=== PATIENT | male | born 1965 | race Caucasian/White ===

== ENCOUNTER 2022-10-22 12:48 | Outpatient (REF) | payer OTHER, SELFPAY ==
[2022-10-22 13:56] LABS: MANUAL DIFF FLAG NO
[2022-10-22 14:30] LABS: Basophils Absolute Auto 0.1 X10*3/uL (0.0-0.2); Basophils Percent Auto 0.7 % (0-2); Eosinophils Absolute Auto 0.2 X10*3/uL (0.0-0.4); Hematocrit 40.2 % (42.0-52.0); Hemoglobin 14.4 g/dl (14.0-18.0); Imm Gran Abs Auto 0.03 X10*3/uL (0.00-0.03); Imm Gran Pct Auto 0.4 % (0.0-0.4); Lymphocytes Absolute Auto 1.9 X10*3/uL (1.2-4.9); Lymphocytes Percent Auto 25.9 % (20-40); Mean Corpuscular HGB Conc 35.8 g/dl (31.0-36.0); Mean Corpuscular Hemoglobin 31.2 pg (27.0-33.0); Mean Platelet Volume 10.4 fL (9.4-12.4); Monocytes Absolute Auto 0.4 X10*3/uL (0.1-1.2); Monocytes Percent Auto 5.4 % (2-11); Neutrophils Absolute Auto 4.8 x10*3/uL (2.0-8.3); Neutrophils Percent Auto 64.6 % (45-73); Platelet Count 183 X10*3/uL (160-400); Red Blood Count 4.62 X10*6/uL (4.60-5.80); Red Cell Distribution Width 12.9 % (11.0-16.0); White Blood Count 7.4 X10*3/uL (4.8-10.8)
[2022-10-22 15:22] LABS: Alanine Aminotransferase 45 U/L (0-40); Albumin Level 4.4 g/dL (3.5-5.0); Alkaline Phosphatase 89 U/L (39-117); Aspartate Amino Transferase 23 U/L (5-37); Blood Urea Nitrogen 16 mg/dL (9-16); C Reactive Protein < 0.10 mg/dL (< or = 0.50); Estimated Glomerular Filt Rate > 60; Glucose Random 177 mg/dL (60-115); Total Protein 6.7 g/dL (6.5-8.0)
[2022-10-22 15:51] LABS: Anion Gap 9 (12-20); Carbon Dioxide 27 mmol/L (22-29); Chloride 109 mmol/L (96-108); Potassium 3.9 mmol/L (3.3-5.1); Sodium 141 mmol/L (135-145)
[2022-10-24 09:10] LABS: HBc Num1 0.07 S/CO (0.00-0.79); HBsAGNum1 0.31 S/CO (0.00-0.99); Hepatitis A Antibody IgM 0.14 Index (0-0.79); Hepatitis B Core Antibody Nonreactive (Nonreactive); Hepatitis B Surface Antigen Negative (Negative); ~HepC Num1 0.06 S/CO (0.00-0.79); ~Hepatitis A Antibody IgM Nonreactive (Nonreactive); ~Hepatitis C Antibody Nonreactive (Nonreactive)
[2022-10-24 10:42] LABS: HBS Num1 4.93 mIU/mL (0-7.99); ~Hepatitis B Surface Antibody NONREACTIVE (Nonreactive)
[2022-10-24 15:44] LABS: Cyclic Citrullinated Peptide <16 UNITS
[2022-10-24 21:38] LABS: TS Negative Control Passed; TS Panel A 0; TS Panel B 0; TS Positive Control Passed; TSpotTB Negative (Negative)
[2022-10-24 21:48] LABS: Prot Elec - Albumin 4.5 g/dL (3.8-4.8); Prot Elec - Alpha1 0.2 g/dL (0.2-0.3); Prot Elec - Alpha2 0.5 g/dL (0.5-0.9); Prot Elec - Beta 1 0.4 g/dL (0.4-0.6); Prot Elec - Beta 2 0.4 g/dL (0.2-0.5); Prot Elec - Gamma 0.8 g/dL (0.8-1.7); Prot Elec - Total Protein 6.8 g/dL (6.1-8.1)
[2022-10-25 11:33] LABS: IgA 243 mg/dL (47-310); IgG 966 mg/dL (600-1640); IgM 41 mg/dL (50-300)
== END 2022-10-22 12:49 | disposition home or self-care (01) ==
LOC: HO.LAB 12:48
PROVIDERS: PCP Internal Medicine; Visit Provider Student in an Organized Health Care Education/Training Program
DX: M06.9 Rheumatoid arthritis, unspecified (principal); M79.642 Pain in left hand; M79.641 Pain in right hand; M25.571 Pain in right ankle and joints of right foot; M25.50 Pain in unspecified joint; E11.9 Type 2 diabetes mellitus without complications; K21.9 Gastro-esophageal reflux disease without esophagitis; Z11.7 Encounter for testing for latent tuberculosis infection; Z79.899 Other long term (current) drug therapy
CPT/HCPCS: 36415; 80053; 82784; 84165; 85025; 86140; 86200; 86334; 86481; 86704; 86706; 86709; 86803; 87340

== ENCOUNTER 2022-11-18 16:01 | Outpatient (REF) | payer OTHER, SELFPAY ==
--- NOTE | ~2022-11-18 | MR_ITS ---
EXAMINATION: MR HAND WITHOUT AND WITH CONTRAST, LEFT CLINICAL INFORMATION: Rheumatoid arthritis. Pain. COMPARISON: None TECHNIQUE: MR imaging of the left hand was obtained before and after the IV administration of 10 mL Gadavist contrast on a high-field strength scanner. FINDINGS: BONE: No acute fracture or dislocation. No significant marrow edema or postcontrast marrow enhancement. No concerning lytic or blastic osseous lesion. Articular cartilage thinning with small marginal osteophytes at the 1st metacarpophalangeal joint as well as scattered throughout the interphalangeal joints. MUSCLES/TENDONS: Trace fluid within the second, third, and fourth flexor digitorum tendon sheaths, consistent with minimal tenosynovitis. No transverse tendon tear or tendon retraction. LIGAMENTS: Intact collateral ligaments. SOFT TISSUES: Trace 1st carpometacarpal joint effusion. Trace 2nd and 3rd proximal interphalangeal joint effusions with mild postcontrast enhancement. Findings could represent mild synovitis. MR/MR hand LT wo/w con IMPRESSION: 1. Mild arthritis at the 1st metacarpophalangeal joint as well as scattered throughout the interphalangeal joints. Trace 2nd and 3rd proximal interphalangeal joint effusions with mild postcontrast enhancement, which could represent mild synovitis. Findings could indicate an inflammatory arthropathy such as rheumatoid arthropathy. No large periarticular erosions or marrow enhancement. 2. Minimal second, third, and fourth flexor digitorum tenosynovitis without a measurable tendon tear or tendon retraction.
== END 2022-11-18 16:02 | disposition home or self-care (01) ==
LOC: HO.MRI 16:01
PROVIDERS: PCP Internal Medicine; Visit Provider Student in an Organized Health Care Education/Training Program
DX: M06.9 Rheumatoid arthritis, unspecified (principal)
CPT/HCPCS: 73220; A9585

== ENCOUNTER → 2022-11-28 09:43 | Outpatient (BNVA) | payer OTHER, SELFPAY | PROVIDERS: PCP Internal Medicine; Visit Provider Student in an Organized Health Care Education/Training Program | DX: Z13.89 Encounter for screening for other disorder (principal) ==